=== PATIENT | male | born 1990 | race Caucasian/White ===

== ENCOUNTER 2019-05-31 22:57 | Emergency (ER) | payer OTHER ==
[~2019-05-31] VITALS: Ht 170.2 cm; Wt 74.8 kg
[2019-05-31] MEDS ORDERED: CORTISPORIN OIN15 GM (23:16)
[2019-06-01] MEDS ORDERED: MILLIPRED5 MG PO (02:29)
== END 2019-06-01 02:39 | disposition home or self-care (01) ==
LOC: ER 22:57
DX: H92.03 Otalgia, bilateral (principal)